=== PATIENT | male | born 1955 | race American Indian/Alaskan Native ===

== ENCOUNTER 2017-01-13 09:27 | Emergency (ER) | payer BC ==
[2017-01-13] MEDS ORDERED: BOOSTRIX IM ONE (10:04)
[2017-01-13] MEDS ORDERED: MOTRIN PO ONE (10:04)
[2017-01-13] MEDS ORDERED: NORVASC PO ONE (10:06)
--- NOTE | 2017-01-13 10:11 | Emergency Department Report ---
ED Laceration HPI - HPI Chief Complaint: Wound/Laceration Stated Complaint: LACERATION Time Seen by Provider: 01/13/17 09:57 Occurred When: Today Location: Upper Extremity (left hand) Laceration Symptoms: Yes Pain, No Foreign Body Sensation, No Numbness, No Weakness Other History: There is a 61-year-old male with a history of blood pressure presents to ED complaining of left and laceration that occurred today. Patient states he was using a knife to try to take apart frozen biscuit when the knife accidentally went through his left hand. Patient states that knife was a serrated knife. Patient states he was able to stop the bleeding but not started to notice swelling on the posterior aspect of the hand. He states his tetanus is not up-to-date ED Review of Systems ROS: Stated complaint: LACERATION Other details as noted in HPI Constitutional: denies: chills, fever Eyes: denies: eye pain, eye discharge, vision change ENT: denies: ear pain, throat pain Respiratory: denies: cough, shortness of breath, wheezing Cardiovascular: denies: chest pain, palpitations Endocrine: no symptoms reported Gastrointestinal: denies: abdominal pain, nausea, diarrhea Genitourinary: denies: urgency, dysuria Musculoskeletal: denies: back pain, joint swelling, arthralgia Skin: denies: rash, lesions Neurological: denies: headache, weakness, paresthesias Psychiatric: denies: anxiety, depression Hematological/Lymphatic: denies: easy bleeding, easy bruising ED Past Medical Hx - Past Medical History Previous Medical History?: Yes Hx Hypertension: Yes - Surgical History Past Surgical History?: No - Social History Smoking Status: Never Smoker Substance Use Type: Alcohol - Medications Home Medications: Home Medications Medication Instructions Recorded Confirmed Last Taken Type Lisinopril 20 mg PO BID 12/24/14 12/24/14 12/24/14 History Lovastatin 40 mg PO DAILY 12/24/14 12/24/14 12/24/14 History Metoprolol 50 mg PO BID 12/24/14 12/24/14 12/24/14 History Terazosin 10 mg PO DAILY 12/24/14 12/24/14 12/24/14 History Cephalexin [Keflex] 500 mg PO Q12HR #10 cap 01/13/17 Unknown Rx Ibuprofen [Motrin] 800 mg PO Q8HR PRN #30 tablet 01/13/17 Unknown Rx Laceration Physical Exam - Exam General: Vital signs noted. No distress. Alert and acting appropriately. NEUROVASCULAR: Pt able to wiggle her fingers without any pain or discomfort. Capillary refill 2+ bilaterally EXTREMITY: Left hand 1 cm laceration on the anterior aspect of the hand and 2-3 cm in diameter swelling on the posterior aspect of hand Wound Length (cm): 1 Laceration Exam: Yes Normal Distal CMS, No Foreign Body, No Exposed Tendon, Vessel, or Nerve, No Tendon Injury ED Course Vital Signs 01/13/17 09:38 Temperature 98.1 F Pulse Rate 83 Respiratory 18 Rate Blood Pressure 195/101 O2 Sat by Pulse 94 Oximetry - Laceration /Wound Repair Left Hand Wound Location: upper extremity Wound Length (cm): 1 Wound's Depth, Shape: into muscle, linear Wound Explored: no foreign body removed Irrigated w/ Saline (ccs): 100 Betadine Prep?: Yes Anesthesia: 1% Lidocaine Volume Anesthetic (ccs): 3 Wound Repaired With: sutures Suture Size/Type: 3:0 Number of Sutures: 8 Layer Closure?: No Sterile Dressing Applied?: Yes ED Medical Decision Making - Radiology Data Radiology results: report reviewed, image reviewed Fluoro Time In Minutes: XRAY LEFT HAND THREE VIEWS: 01/13/17 09:27:00 CLINICAL: Trauma with a puncture wound. FINDINGS: No fracture or dislocation. Dorsal soft tissue swelling at the midportion of the metacarpals. No foreign body or soft tissue air. Mild arthritis at the basal joint of the thumb and the first MCP joint. IMPRESSION: Soft tissue swelling but no foreign body. Mild arthritis. Transcribed By: REF Dictated By: MARIKA AUGUST MD Electronically Authenticated By: MARIKA AUGUST MD Signed Date/Time: 01/13/17 1053 - Medical Decision Making 61-year-old male presents with puncture wound laceration ED course: Patient received tetanus booster, 800 mg of Motrin. Due to patient's blood pressure pain elevated in ED and he did not take his blood pressure medication this morning one dose of blood pressure medication was given. XRAY of the hand taken, x-ray shows no acute fractures or dislocations or foreign object I discussed this finding is the patient. The 1cm laceration wound was prepped and draped in sterile fashion. Anesthesia was achieved with 3mL of 2% lidocaine. The wound was irrigated with 100cc NS and explored. There were no foreign bodies The wound was reapproximated in 1 layer with 8 sutures suing with three 3-0 Vicryl absorbable sutures in the dermis with continuous sutures percutaneously. There was excellent reapproximation of the wound edges. The patient tolerated the procedure without complication I discussed with the patient to follow up with primary care physician in 3-5 days. Patient's blood pressure is reduced prior to discharge. Critical care attestation.: If time is entered above; I have spent that time in minutes in the direct care of this critically ill patient, excluding procedure time. ED Disposition Clinical Impression: Laceration of hand Qualifiers: Encounter type: initial encounter Foreign body presence: without foreign body Laterality: left Qualified Code(s): S61.412A - Laceration without foreign body of left hand, initial encounter Puncture wound of hand without complication Qualifiers: Encounter type: initial encounter Laterality: left Qualified Code(s): S61.432A - Puncture wound without foreign body of left hand, initial encounter Disposition: TO HOME OR SELFCARE Is pt being admited?: No Does the pt Need Aspirin: No Condition: Stable Instructions: Laceration (ED), Absorbable Suture Care (ED) Additional Instructions: Make sure to follow up with the primary care physician as discussed. Take all your medications as you've been prescribed. If you have any worsening symptoms or develop new symptoms please return to ED immediately. Prescriptions: Cephalexin [Keflex] 500 mg PO Q12HR #10 cap Ibuprofen [Motrin] 800 mg PO Q8HR PRN #30 tablet PRN Reason: Pain Referrals: PRIMARY CARE, [Primary Care Provider] - 3-5 Days [facility] [Outside] - 3-5 Days [facility] [Outside] - 3-5 Days Forms: Accompanied Note, Work/School Release Form(ED) Time of Disposition: 11:45
--- NOTE | 2017-01-13 10:57 | XRay Report ---
XRAY LEFT HAND THREE VIEWS: 01/13/17 09:27:00 CLINICAL: Trauma with a puncture wound. FINDINGS: No fracture or dislocation. Dorsal soft tissue swelling at the midportion of the metacarpals. No foreign body or soft tissue air. Mild arthritis at the basal joint of the thumb and the first MCP joint. IMPRESSION: Soft tissue swelling but no foreign body. Mild arthritis.
[2017-01-13 11:58] VITALS: BP 183/100
== END 2017-01-13 11:58 | disposition home or self-care (01) ==
LOC: ED 09:27
DX: S61.412A Laceration without foreign body of left hand, initial encounter (principal); S61.432A Puncture wound without foreign body of left hand, initial encounter; W26.0XXA Contact with knife, initial encounter; Y93.89 Activity, other specified; Y92.89 Other specified places as the place of occurrence of the external cause; Y99.8 Other external cause status
CPT/HCPCS: 90471; 90715